=== PATIENT | female | born 1965 | race Caucasian/White ===

== ENCOUNTER 2022-11-29 13:23 | Emergency (ER) | payer BC ==
[~2022-11-29] VITALS: Ht 165.1 cm; Wt 104.5 kg
[2022-11-29] MEDS ORDERED: IBUP-1493 PO (13:36)
[2022-11-29] MEDS ORDERED: LORA-1000 PO (13:36)
[2022-11-29] MEDS ORDERED: CIPR250T6 PO (13:36)
[2022-11-29] MEDS ORDERED: CIPR500T10 PO (13:38)
[2022-11-29] MEDS ORDERED: IBUP-2070 PO (13:38)
[2022-11-29] MEDS ORDERED: CYCLOBENZAPRINE HCL 10 MG TABLET PO ONE (14:15)
[2022-11-29] MEDS ORDERED: LIDOCAINE 5% TRANSDERMAL PATCH TD ONE (14:15)
[2022-11-29] MEDS ORDERED: KETOROLAC TROMETHAMINE 30 MG/ML VIAL IM ONE (14:15)
[2022-11-29] MEDS ORDERED: CYCL-448 PO (15:33)
[2022-11-29] MEDS ORDERED: LIDO700A15 TP (15:33)
[2022-11-29 15:49] VITALS: BP 139/88
== END 2022-11-29 15:50 | disposition home or self-care (01) ==
LOC: EMS 13:30
DX: M54.50 Low back pain, unspecified (principal); F41.9 Anxiety disorder, unspecified; Z88.8 Allergy status to other drugs, medicaments and biological substances
CPT/HCPCS: 99283; 96372; J1885